=== PATIENT | male | born 1995 | race Caucasian/White ===

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

== ENCOUNTER 2017-09-03 02:26 | Emergency (ER) | payer OTHER ==
[~2017-09-03] VITALS: Ht 172.7 cm; Wt 72.7 kg
[2017-09-03] MEDS ORDERED: BUPR150T3 PO (02:36)
[2017-09-03] MEDS ORDERED: HYDR-3363 PO (02:36)
[2017-09-03] MEDS ORDERED: ONDANSETRON 4MG/2ML VIAL (J2405) IV ONE (03:45)
[2017-09-03] MEDS ORDERED: MORPHINE 4 MG/ML 1ML SYRINGE IV PRN (03:45)
[2017-09-03] MEDS ORDERED: NS 1,000 ML IV ONE (03:45)
[2017-09-03 04:23] LABS: BASO # 0.1 10^3/uL (0.0-0.2); BASO % 0.4 % (0.0-1.0); EOS % 0.1 % (0.0-3.0); IMMATURE GRANULOCYTE % 0.3 % (0-0); LYMPH # 1.5 10^3/uL (1.5-6.5); LYMPH % 10.1 % (24.0-44.0); MEAN CORPUSCULAR HEMOGLOBIN 30.8 pg (27.0-33.0); MEAN CORPUSCULAR HGB CONC 34.4 g/dl (32.0-36.5); MEAN CORPUSCULAR VOLUME 89.5 fl (80.0-96.0); MONO # 0.8 10^3/uL (0.0-0.8); MONO % 5.1 % (0.0-5.0); NEUTROPHILS # 12.7 10^3/uL (1.8-7.7); PLATELET COUNT, AUTOMATED 254 10^3/uL (150-450); WHITE BLOOD COUNT 15.2 10^3/uL (4.0-10.0)
--- NOTE | 2017-09-03 04:30 | REPUSA ---
CLINICAL HISTORY: Abdominal pain. TECHNIQUE: Multiple axial, sagittal and coronal CT images were obtained through the abdomen and pelvi s without administration of oral or IV contrast material. COMMENTS: Comparison to prior exam on 07/11/2015. Interval appearance of a 5 mm left renal nonobstructing stone. Interval appearance of 4.5 mm obstructing stone in the distal third of the right ureter just below th e level of the iliac bifurcation. Right hydroureteronephrosis. The liver is of uniform attenuation without mass or defect. There is no intra or extrahepatic biliary ductal dilatation. The spleen is normal. The gallbladder is within normal limits. The pancreas is of normal contour and attenuation characteristics. There is no evidence of adrenal mass. There is no evidence for appendicitis. There is no bowel wall thickening. No evidence for small or la rge bowel obstruction. There is no evidence of abdominal ascites or lymphadenopathy. There is no evidence of intrinsic or extrinsic bladder mass. There is no pelvic ascites or lymphadeno laure. Images of the lung bases show no evidence of pleural or parenchymal mass. There are no pleural effusi ons. The bony structures are free of lytic or blastic lesions. IMPRESSION: Interval appearance of the left renal nonobstructing stone. Interval appearance of an obstructing stone in the distal third of the right ureter. Thank you for your kind referral of this patient.
[2017-09-03 05:13] LABS: ALBUMIN 3.8 GM/DL (3.2-5.2); ALBUMIN/GLOBULIN RATIO 1.52 (1.00-1.93); ALKALINE PHOSPHATASE 79 U/L (45-117); ALT/SGPT 39 U/L (12-78); ANION GAP 6 MEQ/L (8-16); AST/SGOT 16 U/L (15-37); BILIRUBIN,DIRECT 0.2 MG/DL (0.0-0.2); BILIRUBIN,TOTAL 0.8 MG/DL (0.2-1.0); BLOOD UREA NITROGEN 11 MG/DL (7-18); CALCIUM LEVEL 8.5 MG/DL (8.5-10.1); CARBON DIOXIDE LEVEL 30 MEQ/L (21-32); CHLORIDE LEVEL 105 MEQ/L (98-107); CREATININE FOR GFR 0.81 MG/DL (0.70-1.30); GLUCOSE, FASTING 103 MG/DL (70-105); POTASSIUM SERUM 3.9 MEQ/L (3.5-5.1); SODIUM LEVEL 141 MEQ/L (136-145); TOTAL PROTEIN 6.3 GM/DL (6.4-8.2)
[2017-09-03] MEDS ORDERED: FLOM5CAP PO (06:08)
[2017-09-03] MEDS ORDERED: PERC5TAB12 PO (06:08)
[2017-09-03] MEDS ORDERED: CIPR-249 PO (06:08)
[2017-09-03 06:15] VITALS: BP 115/65
[2017-09-03] MEDS ORDERED: CIPROFLOXACIN 500 MG TAB PO ONE (06:15)
[2017-09-03] MEDS ORDERED: TAMSULOSIN 0.4 MG CAP PO ONE (06:15)
[2017-09-03] MEDS ORDERED: OXYCODONE/APAP 5MG/325MG(BULK FOR ED) 1 TABLET PO ONE (06:15)
== END 2017-09-03 06:30 | disposition home or self-care (01) ==
LOC: M ED 02:26 → EDBD 02:26 → EDSEX 02:26 → M ED 06:30
DX: N21.1 Calculus in urethra (principal); Z87.442 Personal history of urinary calculi; Z79.899 Other long term (current) drug therapy; Z88.5 Allergy status to narcotic agent; Z88.0 Allergy status to penicillin
CPT/HCPCS: 74176; 80048; 80076; 81001; 83690; 85025; 87086; 96374; 96375; 99284; J2405

== ENCOUNTER → 2017-09-11 | Outpatient (CLI) | payer OTHER ==
[~2017-09-11] MED LIST: BUPR150T3 PO; CIPR-249 PO; FLOM5CAP PO; HYDR-3363 PO; PERC5TAB12 PO
--- NOTE | 2017-09-12 02:25 | REP ---
Clinical: Right flank pain. Nephrolithiasis. Correlation: CT dated 09/03/2017. Technique: Single supine view of the abdomen and pelvis. Findings: Punctate nonobstructing left renal calculus cannot be excluded. Further evaluation of the urinary tract system is limited due to technique and overlying bowel gas. No evidence for bowel obstruction. No organomegaly. Skeletal structures intact. Impression: Cannot exclude small left renal calculi. Further evaluation of the urinary tract system is limited. Signed by Marvin Hugo MD 09/12/2017 02:16 A
== END ==
LOC: M SMT 14:55
PROVIDERS: ATTEND Nurse Practitioner Women's Health
DX: N20.0 Calculus of kidney (principal)

== ENCOUNTER 2017-11-08 15:13 | Emergency (ER) | payer OTHER ==
[~2017-11-08] VITALS: Ht 167.6 cm; Wt 75.0 kg
[2017-11-08] MEDS ORDERED: NS 1,000 ML IV ONE (16:00)
[2017-11-08] MEDS ORDERED: ADACEL/BOOSTRIX VACCINE (DIPHTH/PERTUSS/ACELL/TETANUS)0.5ML SYR (90715) IM ONE (16:00)
[2017-11-08] MEDS ORDERED: ACETAMINOPHEN 325 MG TAB PO ONE (16:00)
--- NOTE | 2017-11-08 16:26 | REP ---
CT of the brain without IV contrast: There are no comparisons. There is no subdural or epidural hematoma. There is no other hemorrhage. There is no edema, mass effect or midline shift. Ventricles are normal size. The visualized paranasal sinuses and mastoids are unremarkable. Impression: Negative CT study of the brain. Signed by Jadon Bojorquez MD 11/08/2017 04:17 P
--- NOTE | 2017-11-08 16:28 | REP ---
CT of the cervical spine: There are no comparisons. Axial images are acquired helical scanning and a reformatted in sagittal and coronal projections. The skull base, C1-C2 are unremarkable. Vertebral body heights, interspacing alignment are normal. The prevertebral soft tissues are normal. The facets are normally aligned. There are no posterior element fractures. Impression: There is no fracture or listhesis. Signed by Jadon Bojorquez MD 11/08/2017 04:20 P
[2017-11-08 16:37] LABS: BASO # 0.1 10^3/uL (0.0-0.2); BASO % 0.6 % (0.0-1.0); EOS % 0.2 % (0.0-3.0); IMMATURE GRANULOCYTE % 0.5 % (0-0); LYMPH # 1.4 10^3/uL (1.5-6.5); LYMPH % 12.1 % (24.0-44.0); MEAN CORPUSCULAR HEMOGLOBIN 30.7 pg (27.0-33.0); MEAN CORPUSCULAR VOLUME 87.7 fl (80.0-96.0); MONO # 0.6 10^3/uL (0.0-0.8); MONO % 5.4 % (0.0-5.0); NEUTROPHILS # 9.7 10^3/uL (1.8-7.7); NEUTROPHILS % 81.2 % (36.0-66.0); PLATELET COUNT, AUTOMATED 287 10^3/uL (150-450); RED CELL DISTRIBUTION WIDTH 11.8 % (11.5-14.5); WHITE BLOOD COUNT 11.9 10^3/uL (4.0-10.0)
[2017-11-08 16:47] LABS: INR 0.97
[2017-11-08 17:14] LABS: METHADONE URINE NEGATIVE (NEGATIVE)
[2017-11-08 17:15] LABS: ALBUMIN 4.3 GM/DL (3.2-5.2); ALBUMIN/GLOBULIN RATIO 1.34 (1.00-1.93); ALKALINE PHOSPHATASE 89 U/L (45-117); ALT/SGPT 44 U/L (12-78); AMYLASE 37 U/L (25-115); ANION GAP 6 MEQ/L (8-16); AST/SGOT 22 U/L (7-37); BILIRUBIN,DIRECT 0.2 MG/DL (0.0-0.2); BILIRUBIN,TOTAL 1.4 MG/DL (0.2-1.0); BLOOD UREA NITROGEN 9 MG/DL (7-18); CALCIUM LEVEL 9.5 MG/DL (8.5-10.1); CARBON DIOXIDE LEVEL 29 MEQ/L (21-32); CHLORIDE LEVEL 105 MEQ/L (98-107); CREATININE FOR GFR 0.98 MG/DL (0.70-1.30); GLUCOSE, FASTING 83 MG/DL (70-105); POTASSIUM SERUM 3.8 MEQ/L (3.5-5.1); SODIUM LEVEL 140 MEQ/L (136-145); TOTAL PROTEIN 7.5 GM/DL (6.4-8.2)
--- NOTE | 2017-11-08 17:18 | REP ---
Portable chest, 04:17 p.m., single AP view: Comparison is 07/03/2012. The lung harris are clear. The cardiac size is normal. The pratima, mediastinum, and bony thorax are unremarkable. Impression: Negative portable chest. Signed by Jadon Bojorquez MD 11/08/2017 05:10 P
[2017-11-08 17:47] VITALS: BP 126/78
== END 2017-11-08 17:55 | disposition home or self-care (01) ==
LOC: EDBD 15:13 → M ED 16:31
DX: S00.01XA Abrasion of scalp, initial encounter (principal); V43.52XA Car driver injured in collision with other type car in traffic accident, initial encounter; Y92.410 Unspecified street and highway as the place of occurrence of the external cause; Y93.89 Activity, other specified; Y99.9 Unspecified external cause status; F90.9 Attention-deficit hyperactivity disorder, unspecified type; Z87.442 Personal history of urinary calculi; F32.9 Major depressive disorder, single episode, unspecified; Z88.8 Allergy status to other drugs, medicaments and biological substances; Z88.5 Allergy status to narcotic agent; Z88.0 Allergy status to penicillin; Z88.1 Allergy status to other antibiotic agents
CPT/HCPCS: 70450; 71010; 72125; 80048; 80076; 80307; 81001; 82150; 82550; 82553; 83605; 83690; 85025; 85610; 85730; 86850; 86900; 86901; 90471; 90715; 93041; 94760; 96360; 96361; 99284; G0480

== ENCOUNTER 2017-11-18 09:17 | Emergency (ER) | payer OTHER ==
[2017-11-18] MEDS: KETOROLAC TROMETHAMINE 10 MG TAB PO (09:45)
[2017-11-18] MEDS: diazePAM 5 MG TAB PO (09:45)
== END 2017-11-18 10:56 | disposition home or self-care (01) ==
LOC: M ED 09:17
DX: S39.012A Strain of muscle, fascia and tendon of lower back, initial encounter (principal); X58.XXXA Exposure to other specified factors, initial encounter; Y92.099 Unspecified place in other non-institutional residence as the place of occurrence of the external cause; Y93.9 Activity, unspecified; Z87.442 Personal history of urinary calculi; F90.9 Attention-deficit hyperactivity disorder, unspecified type; F31.9 Bipolar disorder, unspecified; Z79.899 Other long term (current) drug therapy; Z88.5 Allergy status to narcotic agent; Z88.0 Allergy status to penicillin; Z88.1 Allergy status to other antibiotic agents
CPT/HCPCS: 72110

== ENCOUNTER 2018-08-26 13:29 | Emergency (ER) | payer OTHER ==
[2018-08-26] MEDS ORDERED: AMMONIA AROMATIC INHALANT (FLOOR STOCK) As Ordered (14:19)
[2018-08-26] MEDS: ONDANSETRON 4MG/2ML VIAL (J2405) IV (14:22)
[2018-08-26] MEDS: KETOROLAC 30 MG/ML VIAL (J1885) IV (14:22)
[2018-08-26 14:26] LABS: HEMATOCRIT 48.6 % (42.0-52.0); HEMOGLOBIN 17.2 g/dl (13.5-17.5); MEAN CORPUSCULAR HEMOGLOBIN 31.2 pg (27.0-33.0); MEAN CORPUSCULAR HGB CONC 35.4 g/dl (32.0-36.5); MEAN CORPUSCULAR VOLUME 88.2 fl (80.0-96.0); PLATELET COUNT, AUTOMATED 282 10^3/uL (150-450); RED BLOOD COUNT 5.51 10^6/uL (4.30-6.10); RED CELL DISTRIBUTION WIDTH 12.7 % (11.5-14.5); WHITE BLOOD COUNT 9.4 10^3/uL (4.0-10.0)
[2018-08-26 14:32] LABS: APPEARANCE, URINE CLEAR (CLEAR); BACTERIA, URINE AUTO NEGATIVE (NEGATIVE); BILIRUBIN, URINE AUTO NEGATIVE (NEGATIVE); BLOOD, URINE BLOOD NEGATIVE (NEGATIVE); COLOR, URINE YELLOW (YELLOW); GLUCOSE, URINE (UA) AUTO NEGATIVE (NEGATIVE); KETONE, URINE AUTO NEGATIVE (NEGATIVE); LEUKOCYTE ESTERASE, URINE AUTO NEGATIVE (NEGATIVE); MUCUS, URINE SMALL (NEGATIVE); NITRITE, URINE AUTO NEGATIVE (NEGATIVE); PROTEIN, URINE AUTO NEGATIVE (NEGATIVE); RBC, URINE AUTO 0 /HPF (0-3); SPECIFIC GRAVITY URINE AUTO 1.017 (1.002-1.035); SQUAMOUS EPITHELIAL CELL UR AU 0 /HPF (0-6); WBC, URINE AUTO 0 /HPF (0-3)
[2018-08-26 14:41] LABS: ADD MANUAL DIFFER YES; DIFF SLIDE NUMBER 309; POSITIVE DIFF POS FLAG; SUSPECT SAMPLE POS FLAG
[2018-08-26 14:41] LABS: BEDSIDE GLUCOSE 91 MG/DL (70-105)
[2018-08-26 14:53] LABS: ALBUMIN 4.1 GM/DL (3.2-5.2); ALBUMIN/GLOBULIN RATIO 1.08 (1.00-1.93); ALKALINE PHOSPHATASE 127 U/L (45-117); ALT/SGPT 35 U/L (12-78); AMYLASE 38 U/L (25-115); ANION GAP 6 MEQ/L (8-16); AST/SGOT 22 U/L (7-37); BILIRUBIN,DIRECT 0.2 MG/DL (0.0-0.2); BILIRUBIN,TOTAL 1.7 MG/DL (0.2-1.0); BLOOD UREA NITROGEN 11 MG/DL (7-18); CALCIUM LEVEL 8.7 MG/DL (8.5-10.1); CARBON DIOXIDE LEVEL 31 MEQ/L (21-32); CHLORIDE LEVEL 105 MEQ/L (98-107); CREATININE FOR GFR 1.13 MG/DL (0.70-1.30); GLUCOSE, FASTING 82 MG/DL (70-100); LIPASE 120 U/L (73-393); POTASSIUM SERUM 3.8 MEQ/L (3.5-5.1); SODIUM LEVEL 142 MEQ/L (136-145); TOTAL PROTEIN 7.9 GM/DL (6.4-8.2)
[2018-08-26 15:03] LABS: LYMPHOCYTES 70 % (16-52); MONOCYTES 4 % (0-8); NEUTROPHILS 26 % (35-75); PLATELET ESTIMATE NORMAL (NORMAL)
[2018-08-26] MEDS: NS 1,000 ML IV (15:10)
== END 2018-08-26 16:22 | disposition home or self-care (01) ==
LOC: M ED 13:29
DX: N20.0 Calculus of kidney (principal); Z88.0 Allergy status to penicillin; Z88.2 Allergy status to sulfonamides; Z88.5 Allergy status to narcotic agent; Z88.8 Allergy status to other drugs, medicaments and biological substances
CPT/HCPCS: J2405

== ENCOUNTER 2018-10-07 11:25 | Emergency (ER) | payer OTHER | END 2018-10-07 13:48 | disposition home or self-care (01) | LOC: M ED 11:25 | DX: M25.552 Pain in left hip (principal) | CPT/HCPCS: 73502 ==

== ENCOUNTER 2018-10-18 06:55 | Emergency (ER) | payer OTHER ==
[2018-10-18] MEDS: KETOROLAC 60 MG/2 ML VIAL (J1885) IM (07:47)
[2018-10-18] MEDS: PROMETHAZINE INJ 25 MG/ML VIAL (J2550) IM (07:47)
== END 2018-10-18 12:22 | disposition home or self-care (01) ==
LOC: M ED 06:55
DX: N20.1 Calculus of ureter (principal)
CPT/HCPCS: J1885

== ENCOUNTER → 2018-10-30 | Outpatient (REF) | payer OTHER ==
[2018-10-30 12:16] LABS: MEAN CORPUSCULAR HEMOGLOBIN 30.6 pg (27.0-33.0); MEAN CORPUSCULAR VOLUME 89.9 fl (80.0-96.0); PLATELET COUNT, AUTOMATED 267 10^3/uL (150-450); RED BLOOD COUNT 5.56 10^6/uL (4.30-6.10); RED CELL DISTRIBUTION WIDTH 12.2 % (11.5-14.5); WHITE BLOOD COUNT 6.3 10^3/uL (4.0-10.0)
[2018-10-30 12:36] LABS: ALBUMIN 4.6 GM/DL (3.2-5.2); ALBUMIN/GLOBULIN RATIO 1.53 (1.00-1.93); ALKALINE PHOSPHATASE 103 U/L (45-117); ALT/SGPT 34 U/L (12-78); ANION GAP 8 MEQ/L (8-16); AST/SGOT 12 U/L (7-37); BILIRUBIN,TOTAL 1.8 MG/DL (0.2-1.0); BLOOD UREA NITROGEN 17 MG/DL (7-18); CALCIUM LEVEL 9.7 MG/DL (8.5-10.1); CARBON DIOXIDE LEVEL 30 MEQ/L (21-32); CHLORIDE LEVEL 104 MEQ/L (98-107); CREATININE FOR GFR 1.03 MG/DL (0.70-1.30); FREE T4 1.16 NG/DL (0.76-1.46); GLOMERULAR FILTRATION RATE > 60.0 (>60); GLUCOSE, FASTING 79 MG/DL (70-100); POTASSIUM SERUM 4.5 MEQ/L (3.5-5.1); SODIUM LEVEL 142 MEQ/L (136-145); TOTAL PROTEIN 7.6 GM/DL (6.4-8.2)
== END ==
LOC: M SFHCPLAZ 07:54
DX: F32.9 Major depressive disorder, single episode, unspecified (principal)

== ENCOUNTER → 2018-12-01 | Outpatient (CLI) | payer OTHER ==
[~2018-12-01] MED LIST changes: +BENT10CA PO; +CYCL10TA PO; +DILA2TAB6 PO; +FLOM0.4C39 PO; -FLOM5CAP PO; +IBUP-1022 PO; +MIRA3350 PO; +ZOFR4TAB14 PO
--- NOTE | 2018-12-02 02:40 | REP ---
Clinical: Contusion. Technique: AP, lateral, bilateral oblique views of the right first toe. Findings: No acute fracture or dislocation. Skeletal structures, joint spaces, and surrounding soft tissues are grossly normal. No subcutaneous emphysema or radiodense foreign body. Impression: No acute fracture or dislocation. Electronically Signed by Marvin Hugo MD 12/02/2018 02:33 A
== END ==
LOC: M SMT 15:15
PROVIDERS: ATTEND Physician Assistant
DX: S90.111A Contusion of right great toe without damage to nail, initial encounter (principal); X58.XXXA Exposure to other specified factors, initial encounter; Y92.89 Other specified places as the place of occurrence of the external cause

== ENCOUNTER → 2019-01-19 | Outpatient (REF) | payer OTHER | LOC: M SFHCPLAZ 17:32 | PROVIDERS: ATTEND Dermatology | DX: D23.39 Other benign neoplasm of skin of other parts of face (principal) ==

== ENCOUNTER → 2019-03-09 | Outpatient (REF) | payer OTHER | LOC: M SFHCPLAZ 17:51 | PROVIDERS: ATTEND Dermatology | DX: D48.5 Neoplasm of uncertain behavior of skin (principal) ==

== ENCOUNTER 2019-04-04 21:33 | Emergency (ER) | payer OTHER ==
[~2019-04-04] VITALS: Ht 177.8 cm; Wt 95.5 kg
[2019-04-04 22:14] LABS: HEMOGLOBIN 16.3 g/dl (13.5-17.5); MEAN CORPUSCULAR HEMOGLOBIN 30.8 pg (27.0-33.0); MEAN CORPUSCULAR HGB CONC 34.7 g/dl (32.0-36.5); MEAN CORPUSCULAR VOLUME 88.7 fl (80.0-96.0); PLATELET COUNT, AUTOMATED 278 10^3/uL (150-450); WHITE BLOOD COUNT 9.4 10^3/uL (4.0-10.0)
[2019-04-04] MEDS ORDERED: KETOROLAC 30 MG/ML VIAL (J1885) IV ONE (22:30)
[2019-04-04 22:32] LABS: ATYPICAL LYMPH 7 % (0-5); BASOPHILS 1 % (0-4); EOSINOPHILS 1 % (0-5); LYMPHOCYTES 55 % (16-52); MONOCYTES 4 % (0-8); NEUTROPHILS 32 % (35-75); PLATELET ESTIMATE NORMAL (NORMAL)
[2019-04-04 22:45] LABS: BLOOD UREA NITROGEN 14 MG/DL (7-18); CALCIUM LEVEL 9.1 MG/DL (8.5-10.1); CARBON DIOXIDE LEVEL 29 MEQ/L (21-32); CHLORIDE LEVEL 106 MEQ/L (98-107); CK-MB VALUE MASS < 1.0 NG/ML (<3.6); CPK CREATINE PHOSPHOKINASE 85 U/L (39-308); CREATININE FOR GFR 1.02 MG/DL (0.70-1.30); ETHYL ALCOHOL (ETHANOL) < 0.003 % (0.000-0.010); GLOMERULAR FILTRATION RATE > 60.0 (>60); GLUCOSE, FASTING 87 MG/DL (70-100); MB/CK RELATIVE INDEX 1.18 (< OR =4); POTASSIUM SERUM 4.4 MEQ/L (3.5-5.1); SODIUM LEVEL 143 MEQ/L (136-145); TROPONIN I < 0.02 NG/ML (< 0.10)
[2019-04-04 23:05] LABS: ABG BASE EXCESS 0.6 (-2.0-2.0); ABG HCO3 25.7 MEQ/L (22.0-26.0); ABG O2 SATURATION 95.8 % (95.0-99.0); ABG PARTIAL PRESSURE CO2 42.6 mmHg (35.0-45.0); ABG PARTIAL PRESSURE O2 78.3 mmHg (75.0-100.0); ABG pH (ARTERIAL) 7.398 UNITS (7.350-7.450)
[2019-04-05] MEDS ORDERED: KETO10TAB PO (00:03)
[2019-04-05 00:16] VITALS: BP 139/84
--- NOTE | 2019-04-05 01:09 | REP ---
Clinical: Acute chest pain . Comparison: 11/08/2017 . Technique: PA and lateral. Findings: The mediastinum and cardiac silhouette are normal. The lung harris are clear and without acute consolidation, effusion, or pneumothorax. The skeletal structures are intact and normal. Impression: 1. No acute cardiopulmonary process. Electronically Signed by Marvin Hugo MD 04/05/2019 01:00 A
--- NOTE | 2019-04-05 05:59 | ECGEPIP ---
Stationary ECG Study [facility] - ED Test Date: 2019-04-04 Pat Name: MADELINE CLAYTON Department: Room: - Gender: M Senior Underwriter: : 1995 Requested By: JAYRO JEFFERS Order Number: [id number] Reading MD: Camden Garcia Measurements Intervals [place] Rate: 94 P: 21 HI: 151 QRS: 42 QRSD: 88 T: 10 QT: 360 QTc: 452 Interpretive Statements SINUS RHYTHM POSSIBLE LEFT ATRIAL ENLARGEMENT NONSPECIFIC T-WAVE ABNORMALITY SIMILAR TO 08/26/18 Electronically Signed On 04-05-2019 5:59:12 EDT by Camden Garcia
== END 2019-04-05 00:17 | disposition home or self-care (01) ==
LOC: M ED 21:33 → EDBD 21:33 → M ED 04-05 00:17
DX: R07.1 Chest pain on breathing (principal); F31.9 Bipolar disorder, unspecified; Z87.442 Personal history of urinary calculi; R22.9 Localized swelling, mass and lump, unspecified; Z88.2 Allergy status to sulfonamides; Z88.5 Allergy status to narcotic agent; Z88.8 Allergy status to other drugs, medicaments and biological substances
CPT/HCPCS: 36415; 36600; 71046; 80048; 82550; 82553; 82803; 85025; 93005; 93041; 99285; G0480

== ENCOUNTER → 2022-01-10 | Outpatient (CLI) | payer OTHER ==
[~2022-01-10] MED LIST changes: +BUPR150T12 PO; -BUPR150T3 PO; +CYCL-707 PO; -CYCL10TA PO; +KETO10TAB PO
== END ==
LOC: M PLAIMG 10:05
PROVIDERS: ATTEND Physician Assistant
DX: M54.2 Cervicalgia (principal); M25.78 Osteophyte, vertebrae

== ENCOUNTER 2024-08-31 10:31 | Emergency (ER) | payer OTHER ==
[~2024-08-31] VITALS: Ht 175.3 cm; Wt 100.7 kg
[2024-08-31 12:48] VITALS: BP 125/89; TEMP 98.4; O2SAT 97
== END 2024-08-31 12:49 | disposition home or self-care (01) ==
LOC: M ED 10:31
DX: M75.22 Bicipital tendinitis, left shoulder (principal); F90.9 Attention-deficit hyperactivity disorder, unspecified type; F31.9 Bipolar disorder, unspecified; Z88.2 Allergy status to sulfonamides; Z88.5 Allergy status to narcotic agent; Z88.8 Allergy status to other drugs, medicaments and biological substances

== ENCOUNTER → 2025-02-24 | Outpatient (CLI) | payer OTHER | LOC: M CARPUL 08:53 | PROVIDERS: ATTEND Physician Assistant | DX: R07.89 Other chest pain (principal) ==